=== PATIENT | female | born 1975 | race Caucasian/White ===

== ENCOUNTER 2017-05-10 15:29 | Emergency (ER) | payer MEDICAID ==
[~2017-05-10] VITALS: Ht 162.6 cm; Wt 70.0 kg
[~2017-05-10 15:29] MED LIST: DULO60CA44 PO
[2017-05-10] MEDS ORDERED: IPRATROPIUM/ALBUTEROL 0.5-3(2.5)MG/3ML NEB HHN ONE ×2 (21:00→22:00)
[2017-05-10] MEDS ORDERED: METHYLPREDNISOLONE SOD SUCC 125 MG/2 ML VIAL IM ONE (22:00)
[2017-05-10 23:28] VITALS: BP 124/62
== END 2017-05-10 23:28 | disposition home or self-care (01) ==
LOC: ER 15:39
DX: J45.901 Unspecified asthma with (acute) exacerbation (principal); F12.10 Cannabis abuse, uncomplicated; Z88.2 Allergy status to sulfonamides
CPT/HCPCS: 81025; 94640; 96372; 99283; J2930; Z7610; J7620

== ENCOUNTER 2017-05-13 19:25 | Emergency (ER) | payer MEDICAID ==
[~2017-05-13] VITALS: Ht 162.6 cm; Wt 71.0 kg
[2017-05-13 22:46] LABS: BASOPHILS % 0.6 % (0.0-2.0); EOSINOPHILS % 2.3 % (0.0-5.0); HEMATOCRIT. 39.5 % (36.0-48.0); HEMOGLOBIN. 14.3 g/dL (12.0-16.0); LYMPHOCYTES % 32.5 % (20.0-50.0); MEAN CORPUSCULAR HEMOGLOBIN 32.4 pg (28.0-32.0); MEAN CORPUSCULAR VOLUME 89.8 fL (81.0-99.0); MEAN PLATELET VOLUME 8.1 fl (7.4-10.4); MONOCYTES % 7.5 % (2.0-8.0); NEUTROPHILS % 57.1 % (40.0-76.0); PLATELET 300 x1000/uL (130-400); RED CELL DISTRIBUTION WIDTH 13.5 % (11.6-14.6)
[2017-05-13 23:00] LABS: HCG SCREEN NEGATIVE
[2017-05-13 23:04] LABS: CHLORIDE 101 mEq/L (98-107)
[2017-05-13 23:10] LABS: CARBON DIOXIDE 26 mEq/L (21-32)
[2017-05-14] MEDS ORDERED: IPRATROPIUM/ALBUTEROL 0.5-3(2.5)MG/3ML NEB HHN ONE (00:15)
[2017-05-14 01:30] VITALS: BP 122/68
== END 2017-05-14 01:36 | disposition home or self-care (01) ==
LOC: ER 19:25
DX: R06.02 Shortness of breath (principal); J45.909 Unspecified asthma, uncomplicated; D72.829 Elevated white blood cell count, unspecified; R73.9 Hyperglycemia, unspecified; R00.8 Other abnormalities of heart beat; Z98.890 Other specified postprocedural states; Z88.2 Allergy status to sulfonamides; Z36.9 Encounter for antenatal screening, unspecified
CPT/HCPCS: 36415; 71010; 76830; 76856; 80053; 81025; 83880; 84703; 85025; 94640; 99285; Z7610; J7620

== ENCOUNTER 2017-06-24 12:38 | Emergency (ER) | payer MEDICAID ==
[~2017-06-24] VITALS: Ht 162.6 cm; Wt 73.0 kg
[2017-06-24 17:09] LABS: EOSINOPHILS % 4.4 % (0.0-5.0); HEMATOCRIT. 41.5 % (36.0-48.0); HEMOGLOBIN. 14.4 g/dL (12.0-16.0); LYMPHOCYTES % 39.4 % (20.0-50.0); MEAN CORPUSCULAR VOLUME 89.3 fL (81.0-99.0); MEAN PLATELET VOLUME 8.7 fl (7.4-10.4); MONOCYTES % 11.8 % (2.0-8.0); NEUTROPHILS % 43.4 % (40.0-76.0); PLATELET 238 x1000/uL (130-400); RED BLOOD CELL COUNT 4.65 mill/uL (4.2-5.4); RED CELL DISTRIBUTION WIDTH 13.4 % (11.6-14.6)
[2017-06-24 17:21] LABS: HCG SCREEN NEGATIVE
[2017-06-24 17:54] VITALS: BP 117/69
== END 2017-06-24 17:57 | disposition home or self-care (01) ==
LOC: ER 12:52
DX: H60.91 Unspecified otitis externa, right ear (principal); I50.9 Heart failure, unspecified; J45.909 Unspecified asthma, uncomplicated; Z88.2 Allergy status to sulfonamides
CPT/HCPCS: 36415; 81025; 84703; 85025; 99284

== ENCOUNTER 2017-07-12 13:53 | Observation (INO) | payer MEDICAID ==
[~2017-07-12] VITALS: Ht 162.6 cm; Wt 74.4 kg
== END 2017-07-12 15:00 | disposition home or self-care (01) ==
LOC: L&D 13:53
PROVIDERS: ADMIT Specialist; ATTEND Specialist
DX: Z32.02 Encounter for pregnancy test, result negative (principal)
CPT/HCPCS: 76856; 99281; G0378

== ENCOUNTER 2017-07-14 20:56 | Emergency (ER) | payer MEDICAID ==
[~2017-07-14] VITALS: Ht 162.6 cm; Wt 74.0 kg
[2017-07-14] MEDS ORDERED: ASPIRIN 81MG TABLET PO ONE (22:15)
[2017-07-14 23:37] LABS: BASOPHILS % 0.5 % (0.0-2.0); EOSINOPHILS % 3.7 % (0.0-5.0); HEMATOCRIT. 39.5 % (36.0-48.0); HEMOGLOBIN. 13.5 g/dL (12.0-16.0); LYMPHOCYTES % 40.8 % (20.0-50.0); MEAN CORPUSCULAR HEMOGLOBIN 30.5 pg (28.0-32.0); MEAN CORPUSCULAR VOLUME 88.8 fL (81.0-99.0); MEAN PLATELET VOLUME 8.8 fl (7.4-10.4); MONOCYTES % 10.8 % (2.0-8.0); NEUTROPHILS % 44.2 % (40.0-76.0); PLATELET 265 x1000/uL (130-400); RED BLOOD CELL COUNT 4.45 mill/uL (4.2-5.4); RED CELL DISTRIBUTION WIDTH 13.2 % (11.6-14.6)
[2017-07-14 23:53] LABS: CHLORIDE 102 mEq/L (98-107)
[2017-07-14 23:58] LABS: T4 FREE 0.85 ng/dL (0.76-1.46)
[2017-07-14 23:59] LABS: TROPONIN I < 0.02 ng/mL (0.00-0.04)
[2017-07-15 02:14] VITALS: BP 110/75
== END 2017-07-15 02:22 | disposition home or self-care (01) ==
LOC: ER 20:56
DX: I49.9 Cardiac arrhythmia, unspecified (principal); E03.9 Hypothyroidism, unspecified; I50.9 Heart failure, unspecified; J45.909 Unspecified asthma, uncomplicated; Z98.890 Other specified postprocedural states; Z88.2 Allergy status to sulfonamides
CPT/HCPCS: 36415; 71045; 80053; 81025; 83880; 84439; 84443; 84484; 85025; 85610; 93005; 99285

== ENCOUNTER 2017-11-16 16:57 | Observation (INO) | payer MEDICAID | END 2017-11-16 23:45 | disposition home or self-care (01) | LOC: L&D 16:57 | PROVIDERS: ADMIT Specialist; ATTEND Specialist | DX: O26.899 Other specified pregnancy related conditions, unspecified trimester (principal); R10.9 Unspecified abdominal pain; Z3A.00 Weeks of gestation of pregnancy not specified | CPT/HCPCS: G0378 ×2; 99281 ==

== ENCOUNTER 2017-11-16 17:11 | Emergency (ER) | payer MEDICAID | END 2017-11-16 19:30 | disposition left against medical advice (07) | LOC: ER 17:43 | DX: R10.9 Unspecified abdominal pain (principal); Z53.21 Procedure and treatment not carried out due to patient leaving prior to being seen by health care provider ==

== ENCOUNTER 2018-08-12 00:15 | Emergency (ER) | payer MEDICAID | END 2018-08-12 00:52 | disposition left against medical advice (07) | LOC: ER 00:15 | DX: M54.5 Low back pain (principal); Z53.21 Procedure and treatment not carried out due to patient leaving prior to being seen by health care provider ==

== ENCOUNTER 2023-05-16 12:55 | Emergency (ER) | payer MEDICAID, OTHER ==
[~2023-05-16] VITALS: Ht 165.1 cm; Wt 91.0 kg
[~2023-05-16 12:55] MED LIST changes: -DULO60CA44 PO; +DULO60CA45 PO
[2023-05-16 13:03] VITALS: O2SAT 98
[2023-05-16 13:56] VITALS: BP 142/78; PULSE 62; RESP 18; TEMP 98.4
[2023-05-16] MEDS ORDERED: BENZ200C52 MT (14:15)
== END 2023-05-16 14:42 | disposition home or self-care (01) ==
LOC: ER 12:55
DX: J06.9 Acute upper respiratory infection, unspecified (principal); J45.909 Unspecified asthma, uncomplicated; I50.9 Heart failure, unspecified; Z88.2 Allergy status to sulfonamides
CPT/HCPCS: 71045; 99283

== ENCOUNTER 2023-09-13 04:25 | Emergency (ER) | payer MEDICAID, OTHER ==
[~2023-09-13] VITALS: Ht 167.6 cm; Wt 81.0 kg
[~2023-09-13 04:25] MED LIST changes: +BENZ200C52 MT
[2023-09-13 04:27] VITALS: O2SAT 96
[2023-09-13 05:05] LABS: BASOPHILS % 0.2 % (0.0-2.0); EOSINOPHILS % 0.9 % (0.0-5.0); HEMOGLOBIN. 12.6 g/dL (12.0-16.0); LYMPHOCYTES % 14.1 % (20.0-50.0); MEAN CORPUSCULAR HEMOGLOBIN 29.7 pg (28.0-32.0); MEAN CORPUSCULAR HGB CONC 34.1 g/dL (31.0-37.0); MEAN CORPUSCULAR VOLUME 87.2 fL (81.0-99.0); MEAN PLATELET VOLUME 9.2 fl (7.4-10.4); MONOCYTES % 4.2 % (2.0-8.0); NEUTROPHILS % 80.6 % (40.0-76.0); PLATELET 342 x1000/uL (130-400); RED BLOOD CELL COUNT 4.25 mill/uL (4.2-5.4); RED CELL DISTRIBUTION WIDTH 13.9 % (11.6-14.6); WHITE BLOOD COUNT 11.4 x1000/uL (4.5-11.0)
[2023-09-13 05:25] LABS: ALANINE AMINOTRANSFERASE 21 IU/L (10-49); ALBUMIN 4.5 g/dL (3.2-4.8); ASPARTATE AMINOTRANSFERASE 21 IU/L (<34); BILIRUBIN TOTAL 0.4 mg/dL (0.1-1.0); CALCIUM 8.9 mg/dL (8.7-10.4); CARBON DIOXIDE 26 mEq/L (21-32); CHLORIDE 103 mEq/L (98-107); CREATININE 0.7 mg/dL (0.6-1.0); ETHANOL BLOOD < 10 mg/dL (<10); GLUCOSE 177 mg/dL (70-105); PROTEIN TOTAL 7.3 g/dL (6.0-8.3); SODIUM 135 mEq/L (136-145); UREA NITROGEN BLOOD 12 mg/dL (9-23)
[2023-09-13 05:26] LABS: INR 0.9; PROTHROMBIN TIME 10.5 sec (9.6-11.0)
[2023-09-13 05:27] LABS: HCG SCREEN NEGATIVE
[2023-09-13] MEDS: ONDANSETRON HCL 4MG/2ML INJ IV ONE (05:59)
[2023-09-13] MEDS: MORPHINE SULFATE 4 MG/ML INJ (FOR IV/IM USE) IV ONE (05:59)
[2023-09-13] MEDS ORDERED: TOPUD PO (07:33)
[2023-09-13 08:07] VITALS: BP 134/77; PULSE 73; RESP 16; TEMP 98.2
== END 2023-09-13 08:11 | disposition home or self-care (01) ==
LOC: ER 04:25
DX: R10.31 Right lower quadrant pain (principal); I50.9 Heart failure, unspecified; J45.909 Unspecified asthma, uncomplicated; Z88.2 Allergy status to sulfonamides; Z98.890 Other specified postprocedural states
CPT/HCPCS: 80053; 80320; 84703; 83690; 85025; 85610; 36415; 74176; 96374; 96375; 99285; J2405; J2270; G0480